=== PATIENT | male | born 1990 | race African-American/Black ===

== ENCOUNTER 2018-04-20 22:31 | Emergency (ER) | payer BC ==
--- NOTE | 2018-04-20 23:13 | EDM.PDOC ---
ED HPI GENERAL MEDICAL PROBLEM - General Chief Complaint: Lower Extremity Injury/Pain Stated Complaint: ANKLE INJURY Time Seen by Provider: 04/20/18 23:08 Source of Information: Reports: Patient, Significant Other (Fiance) History Limitations: Reports: No Limitations - History of Present Illness INITIAL COMMENTS - FREE TEXT/NARRATIVE: The patient states that he suffered a right knee injury while playing soccer, around 20:15 this evening. He states that he was running, when something happened to his knee. He states that he did not look at his knee, but another player forcefully stepped on his knee and "popped it back". The patient now presents due to pain to the knee, with some swelling to the posterior aspect. He is otherwise uninjured. No prior similar symptoms. Right Knee Pain Score (Numeric/FACES): 10 - Related Data Allergies Allergy/AdvReac Type Severity Reaction Status Date / Time No Known Allergies Allergy Verified 04/20/18 22:42 Home Meds: Home Meds . [No Known Home Meds] 04/20/18 [History] Past Medical History - Past Health History Medical/Surgical History: Denies Medical/Surgical History Social & Family History - Family History Family Medical History: Noncontributory - Tobacco Use Smoking Status *Q: Never Smoker - Alcohol Use Alcohol Use History: No - Recreational Drug Use Recreational Drug Use: No - Living Situation & Occupation Living situation: Reports: Single, with Significant Other (Fiance), with Family (1 child) Occupation: Employed ([employer]) Review of Systems - Review of Systems Review Of Systems: ROS reveals no pertinent complaints other than HPI. ED EXAM, GENERAL - Physical Exam Exam: See Below Exam Limited By: No Limitations General Appearance: Alert, WD/WN, No Apparent Distress Extremities: Other (Mild swelling to the posterior right knee, when compared to the left, but no visible abnormality to the anterior knee, such as swelling, erythema, ecchymosis, or abrasion. There are 2 clean villalpando noted to the lateral aspect of the right knee. The patella palpates to be firmly in appropriate anatomic position. No laxity or pain with medial or lateral collateral ligament stressing. Anterior posterior drawer signs are absent. Neurovascular status of the right lower extremity is intact.) Course - Vital Signs Last Recorded V/S: Last Vital Signs Temp 37.1 C 04/20/18 22:38 Pulse 91 04/20/18 22:38 Resp 16 04/20/18 22:38 BP 125/86 04/20/18 22:38 Pulse Ox 98 04/20/18 22:38 - Orders/Labs/Meds Meds: Medications Discontinued Medications Generic Name Dose Route Start Last Admin Trade Name Maureen PRN Reason Stop Dose Admin Hydrocodone Bitart/Acetaminophen 2 tab 04/20/18 23:21 04/20/18 23:27 Rosenberg 325-5 Mg PO 04/20/18 23:22 2 tab ONETIME ONE Administration - Re-Assessments/Exams Free Text/Narrative Re-Assessment/Exam: 04/20/18 23:10 4-view radiographs of the right knee appear to be normal. No fracture or dislocation seen. Formal read per the Radiologist pending. 04/20/18 23:22 The patient is not able to say what happened to his knee. He seems to believe it was bent backwards, but on examination, the knee appears to be quite stable. I suspect that he had a lateral dislocation of his right patella, reduced incorrectly, but nevertheless reduced when another player stomped on it. Either way, I will place the patient into a knee immobilizer, have him ice and elevate the knee, and have him follow-up with Dr. Yeh. Patient will receive Rosenberg here in the ED, and I will provide him a note for work for the next couple of days, by which time he should be able to see Dr. Yeh. Departure - Departure Time of Disposition: 23:24 Disposition: Home, Self-Care 01 Condition: Fair Clinical Impression: Closed dislocation of right patella - Discharge Information *PRESCRIPTION DRUG MONITORING PROGRAM REVIEWED*: Not Applicable *COPY OF PRESCRIPTION DRUG MONITORING REPORT IN PATIENT SALVATORE: Not Applicable Instructions: Patellar Dislocation, [id number] Referrals: PCP,None [Primary Care Provider] - Phan Yeh MD [Physician] - Forms: ED Department Discharge, ED Return to Work/School Form Additional Instructions: You were seen in the emergency room after injuring your right knee while playing soccer. Based on your history and physical examination, you MOST LIKELY suffered a patellar dislocation, reduced by one of your teammates. You have been placed into a knee immobilizer. This goes on over your pants. Put it on each morning, and remove it at bedtime. Ice and elevate your right knee as much as possible over the next 2 days. Take [id number] ibuprofen, 2-3 tablets (400-600 mg) every 8 hours, with food, as needed for discomfort. Call the office of the orthopedic surgeon Dr. Phan Yeh tomorrow morning, to make an appointment to be seen. A note for work for 2 days has been provided. If any other problems, please do not hesitate to return to the ER.
[2018-04-20] MEDS ORDERED: Acetaminophen/HYDROcodone 325-5 MG Tab PO ONE (23:21)
--- NOTE | 2018-04-21 08:52 | CR ---
Right knee: Four views of the right knee were obtained. Comparison: No prior knee exam. Medial and lateral joint compartments are maintained in height. No joint effusion is seen. No acute fracture or other bony abnormality is seen. Impression: 1. No abnormality is appreciated on right knee exam. Diagnostic code #1
== END 2018-04-20 23:42 | disposition home or self-care (01) ==
LOC: JD.ED 22:31
DX: S83.004A Unspecified dislocation of right patella, initial encounter (principal); Y93.66 Activity, soccer; X58.XXXA Exposure to other specified factors, initial encounter
CPT/HCPCS: 73562; 99283; A9270

== ENCOUNTER 2018-05-27 13:02 | Emergency (ER) | payer BC ==
--- NOTE | 2018-05-27 15:02 | EDM.PDOC ---
ED HPI GENERAL MEDICAL PROBLEM - General Chief Complaint: Chest Pain Stated Complaint: CHEST PAIN Time Seen by Provider: 05/27/18 13:12 Source of Information: Reports: Patient History Limitations: Reports: No Limitations - History of Present Illness INITIAL COMMENTS - FREE TEXT/NARRATIVE: The patient presents with mid to left chest pain. This has been going on for about 2 days. The pain comes and goes and is made worse with deep breathing. He has no shortness of breath. He tried aspirin but that does not help. He has no fever, chills, cough, congestion, abdominal pain, nausea, vomiting. He works in the [employer] and he was working when this started and he was not doing anything to strenuous. About a month ago he got some food caught in his throat and he had to drink lots of water to get it to move. He had no problems after that. He does not smoke and he has no medical problems. Onset: Gradual Duration: Day(s): Location: Reports: Chest Quality: Reports: Sharp Severity: Moderate Improves with: Reports: None Worsens with: Reports: Breathing Associated Symptoms: Reports: Chest Pain. Denies: Cough, Fever/Chills, Headaches, Nausea/Vomiting, Shortness of Breath Left Middle Chest Pain Score (Numeric/FACES): 9 - Related Data Allergies Allergy/AdvReac Type Severity Reaction Status Date / Time No Known Allergies Allergy Verified 05/27/18 13:15 Home Meds: Home Meds Ibuprofen [Advil] 800 mg PO DAILY 05/27/18 [History] Past Medical History - Past Health History Medical/Surgical History: Denies Medical/Surgical History Social & Family History - Family History Family Medical History: Noncontributory - Tobacco Use Smoking Status *Q: Never Smoker - Caffeine Use Caffeine Use: Reports: Coffee - Recreational Drug Use Recreational Drug Use: No - Living Situation & Occupation Living situation: Reports: Single, with Significant Other (Fiance), with Family (1 child) Occupation: Employed ([employer]) ED ROS GENERAL - Review of Systems Review Of Systems: See Below Constitutional: Reports: No Symptoms HEENT: Reports: No Symptoms Respiratory: Reports: No Symptoms Cardiovascular: Reports: Chest Pain Endocrine: Reports: No Symptoms GI/Abdominal: Reports: No Symptoms : Reports: No Symptoms Musculoskeletal: Reports: No Symptoms ED EXAM, GENERAL - Physical Exam Exam: See Below Exam Limited By: No Limitations General Appearance: Alert, No Apparent Distress Ears: Normal External Exam Nose: Normal Inspection Head: Atraumatic, Normocephalic Neck: Normal Inspection Respiratory/Chest: No Respiratory Distress, Lungs Clear, Normal Breath Sounds Cardiovascular: Regular Rate, Rhythm, No Edema, No Murmur GI/Abdominal: Soft, Non-Tender, No Organomegaly, No Mass Back Exam: Normal Inspection Extremities: Normal Inspection EKG INTERPRETATION EKG Date: 05/27/18 Time: 14:49 Rhythm: NSR Rate (Beats/Min): 76 [place]: Normal P-Wave: Present QRS: Normal ST-T: Elevated (Normal early repol pattern) QT: Normal Course - Vital Signs Last Recorded V/S: Last Vital Signs Temp 98.1 F 05/27/18 13:09 Pulse 81 05/27/18 13:09 Resp 18 05/27/18 13:09 BP 130/94 H 05/27/18 13:09 Pulse Ox 99 05/27/18 13:09 - Orders/Labs/Meds Orders: Active Orders 24 hr Category Date Time Status Cardiac Monitoring [RC] . DIRECTED Care 05/27/18 13:24 Active EKG Documentation Completion [RC] ASDIRECTED Care 05/27/18 14:44 Active Chest 2V [CR] Stat Exams 05/27/18 13:26 Taken EKG 12 Lead [EK] Stat Ther 05/27/18 14:44 Ordered Labs: Laboratory Tests 05/27/18 05/27/18 05/27/18 Range/Units 13:45 13:45 13:45 WBC 7.90 (4.23-9.07) K/mm3 RBC 5.43 (4.63-6.08) M/mm3 Hgb 15.5 (13.7-17.5) gm/L Hct 44.5 (40.1-51.0) % MCV 82.0 (79.0-92.2) fl MCH 28.5 (25.7-32.2) pg MCHC 34.8 (32.2-35.5) g/dl RDW Std Deviation 37.4 (35.1-43.9) fL Plt Count 177 (163-337) K/mm3 MPV 10.6 (9.4-12.3) fl Neut % (Auto) 72.2 H (34.0-67.9) % Lymph % (Auto) 19.2 L (21.8-53.1) % [place] % (Auto) 7.6 (5.3-12.2) % Eos % (Auto) 0.5 L (0.8-7.0) Baso % (Auto) 0.4 (0.1-1.2) % Neut # (Auto) 5.70 H (1.78-5.38) K/mm3 Lymph # (Auto) 1.52 (1.32-3.57) K/mm3 [place] # (Auto) 0.60 (0.30-0.82) K/mm3 Eos # (Auto) 0.04 (0.04-0.54) K/mm3 Baso # (Auto) 0.03 (0.01-0.08) K/mm3 D-Dimer, Quantitative < 0.19 L (0.19-0.50) mg/L Sodium 141 (136-145) mEq/L Potassium 3.6 (3.5-5.1) mEq/L Chloride 105 (98-107) mEq/L Carbon Dioxide 26 (21-32) mEq/L Anion Gap 13.6 (5-15) BUN 18 (7-18) mg/dL Creatinine 1.4 H (0.7-1.3) mg/dL Est Cr Clr Drug Dosing 70.56 mL/min Estimated GFR (MDRD) > 60 (>60) mL/min BUN/Creatinine Ratio 12.9 L (14-18) Glucose 117 H (74-106) mg/dL Calcium 9.4 (8.5-10.1) mg/dL Total Bilirubin 1.3 H (0.2-1.0) mg/dL AST 25 (15-37) U/L ALT 31 (16-63) U/L Alkaline Phosphatase 63 (46-116) U/L Troponin I < 0.017 (0.00-0.056) ng/mL Total Protein 8.1 (6.4-8.2) g/dl Albumin 4.1 (3.4-5.0) g/dl Globulin 4.0 gm/dL Albumin/Globulin Ratio 1.0 (1-2) - Re-Assessments/Exams Free Text/Narrative Re-Assessment/Exam: 05/27/18 15:09 I ordered an EKG, CXR and labs. His EKG shows a NSR with no acute changes. His CXR looks good. His labs look good. It appears to be some pleurisy. I will discharge him home on antiinflammatories and light duty. Departure - Departure Time of Disposition: 15:10 Disposition: Home, Self-Care 01 Condition: Good Clinical Impression: Pleurisy Referrals: PCP,None [Primary Care Provider] - Kylah Sweeney [employer] [ED Midlevel Provider] - 1 Week Forms: ED Department Discharge, ED Return to Work/School Form Additional Instructions: Take motrin or aleve for pain. Do light duty at work for 3 days. Please return if you are worse. - My Orders Last 24 Hours: My Active Orders 05/27/18 13:24 Cardiac Monitoring [RC] . DIRECTED 05/27/18 13:26 Chest 2V [CR] Stat 05/27/18 14:44 EKG Documentation Completion [RC] ASDIRECTED EKG 12 Lead [EK] Stat - Assessment/Plan Last 24 Hours: My Active Orders 05/27/18 13:24 Cardiac Monitoring [RC] . DIRECTED 05/27/18 13:26 Chest 2V [CR] Stat 05/27/18 14:44 EKG Documentation Completion [RC] ASDIRECTED EKG 12 Lead [EK] Stat
== END 2018-05-27 15:21 | disposition home or self-care (01) ==
LOC: JD.ED 13:02
DX: R09.1 Pleurisy (principal)
CPT/HCPCS: 36415; 71046; 80053; 84484; 85025; 85379; 93005; 93010; 99284-25